=== PATIENT | female | born 1980 | race Caucasian/White ===

== ENCOUNTER 2020-01-14 06:17 | Emergency (ER) | payer SELFPAY ==
--- NOTE | 2020-01-14 06:24 | NUR ---
Patient left without being triaged, stated that she will just go to her Primary doctor's office. ERMD aware.
== END 2020-01-14 06:26 | disposition left against medical advice (07) ==
LOC: ER 06:25
DX: Z75.3 Unavailability and inaccessibility of health-care facilities (principal)